=== PATIENT | male | born 1950 | race Caucasian/White ===

== ENCOUNTER 2020-09-15 07:50 | Outpatient (CLI) | payer OTHER | END 2020-09-15 08:00 | disposition home or self-care (01) | LOC: EDBD 07:50 → NUCLEAR 07:50 | PROVIDERS: ATTEND Internal Medicine | DX: I25.10 Atherosclerotic heart disease of native coronary artery without angina pectoris (principal); I11.9 Hypertensive heart disease without heart failure | CPT/HCPCS: 78452; 93017; A9500 ==